=== PATIENT | female | born 1985 | race Caucasian/White ===

== ENCOUNTER 2017-02-22 10:06 | Emergency (ER) | payer OTHER ==
[2017-02-22] MEDS ORDERED: ACETAMINOPHEN 325 MG TABLET PO ONE (10:12)
--- NOTE | 2017-02-22 10:37 | ER Document Report ---
ED GI/ - General Chief Complaint: Nausea/Vomiting Stated Complaint: WEAKNESS/VOMITING Time Seen by Provider: 02/22/17 10:37 Mode of Arrival: Ambulatory Information source: Patient Notes: 31 yo non smoker, no etoh, smoke marijuana to help keep food down past 6 months (2-3 times per wee) female woke up vomiting at 3 am, woke up at 7 am with generalized body aches, Son ran into lapband port with his head this morning causing severe pain. lapband moved to be crooked which is causing inability to keep fuids and food down progressively over 2 years. No nausea. Usually constipated, had small bm this am. No dysuria, no vaginal dishcarge, on menses onset 02-18. Spouse vasectomy. Hx. skin removal, breast implant, appendectomey. melanoma age 22. TRAVEL OUTSIDE OF THE [place] IN LAST 30 DAYS: No - Related Data Allergies/Adverse Reactions: No Known Allergies Allergy (Unverified 02/22/17 10:11) Home Medications: Current Home Medications No Home Medications 02/22/17 [History] Past Medical History - General Information source: Patient - Social History Smoking Status: Never Smoker Chew tobacco use (# tins/day): No Frequency of alcohol use: None Drug Abuse: None Lives with: Spouse/Significant other Family History: Reviewed & Not Pertinent - Medical History Medical History: Negative Renal/ Medical History: Denies: Hx Peritoneal Dialysis Past Surgical History: Reports: Hx Abdominal Surgery Review of Systems - Review of Systems Constitutional: See HPI EENT: No symptoms reported Cardiovascular: No symptoms reported Respiratory: No symptoms reported Gastrointestinal: See HPI Genitourinary: No symptoms reported Female Genitourinary: No symptoms reported Musculoskeletal: No symptoms reported Skin: No symptoms reported Hematologic/Lymphatic: No symptoms reported Neurological/Psychological: No symptoms reported Physical Exam - Vital signs Vitals: Temp Pulse Resp BP Pulse Ox 102.6 F H 101 H 22 H 126/67 H 99 02/22/17 10:10 02/22/17 10:10 02/22/17 10:10 02/22/17 10:10 02/22/17 10:10 Interpretation: Normal - General General appearance: Appears well, Alert - HEENT Head: Normocephalic, Atraumatic Eyes: Normal Conjunctiva: Normal Pupils: PERRL Mucous membranes: Normal Pharynx: No: Erythema Neck: Supple. No: Lymphadenopathy - Respiratory Respiratory status: No respiratory distress Chest status: Nontender Breath sounds: Normal Chest palpation: Normal - Cardiovascular Rhythm: Regular Heart sounds: Normal auscultation Murmur: No - Abdominal Inspection: Normal Distension: No distension Bowel sounds: Normal Tenderness: Tender - suprapubic Organomegaly: No organomegaly - Back Back: Normal, Nontender. No: CVA tenderness - Extremities General upper extremity: Normal inspection, Nontender, Normal color, Normal ROM , Normal temperature General lower extremity: Normal inspection, Nontender, Normal color, Normal ROM , Normal temperature, Normal weight bearing. No: Arsh's sign - Neurological Neuro grossly intact: Yes Cognition: Normal Orientation: AAOx4 [place] Coma Scale Eye Opening: Spontaneous [place] Coma Scale Verbal: Oriented Jose Alfredo Coma Scale Motor: Obeys Commands Jose Alfredo Coma Scale Total: 15 Speech: Normal Motor strength normal: LUE, RUE, LLE, RLE Sensory: Normal - Psychological Associated symptoms: Normal affect, Normal mood - Skin Skin Temperature: Warm Skin Moisture: Dry Skin Color: Normal Skin irregularity: negative: Rash Course - Re-evaluation Re-evalutation: 02/22/17 12:29 labs normal, tender over the "lapband" mass at umbilicus, but always has pain there and above the pubis. so it is not new. pt has had more than [address] scans so will order AAS to start with. 02/22/17 14:31 AAS negative - Vital Signs Vital signs: Temp Pulse Resp BP Pulse Ox 98.1 F 97 18 116/59 L 98 02/22/17 14:32 02/22/17 14:32 02/22/17 14:32 02/22/17 14:32 02/22/17 14:32 - Laboratory Result Diagrams: 02/22/17 10:50 02/22/17 10:50 Laboratory results interpreted by me: 02/22/17 02/22/17 10:50 11:00 Hgb 11.2 L Hct 33.2 L MCV 78 L MCH 26.4 L RDW 15.2 H Seg Neutrophils % 84.0 H Lymphocytes % 8.3 L Urine Blood SMALL H Discharge - Discharge Clinical Impression: chronic vomiting, Chronic abdominal pain Fever Qualifiers: Fever type: unspecified Qualified Code(s): R50.9 - Fever, unspecified Condition: Good Disposition: HOME, SELF-CARE Instructions: Abdominal Pain ([facility]), Acetaminophen, Use of Oowi-Ohn-Chzjruu Ibuprofen ([facility]), Gastroenterology Additional Instructions: tylenol and motrin for fever copy of labs and imaging given to you to er if worse Please complete the patient satisfaction survey if you get one, and return it.. If you do not receive a survey, then you can go to the [facility] website, [email or web address] and place your comments about your very good care. Thank you very much. It was a pleasure being your medical provider today. Forms: Return to Work Referrals: NICHOLE RAWLS MD [ACTIVE STAFF] - Follow up as needed
[2017-02-22] MEDS ORDERED: NORMAL SALINE 1000 ML 1,000 ML IV ONE (10:38)
[2017-02-22 11:01] LABS: ABSOLUTE LYMPHOCYTES (AUTO) 0.7 10^3/uL (0.5-4.7); ABSOLUTE MONOCYTES (AUTO) 0.6 10^3/uL (0.1-1.4); ABSOLUTE NEUT (AUTO) 7.1 10^3/uL (1.7-8.2); BASOPHILS % (AUTO) 0.4 % (0-2); EOSINOPHILS % (AUTO) 0.3 % (0-6); HEMATOCRIT 33.2 % (36.0-47.0); HEMOGLOBIN 11.2 g/dL (12.0-15.5); HGB HCT DIFFERENCE 0.4; LYMPHOCYTES % (AUTO) 8.3 % (13-45); MEAN CORPUSCULAR HEMOGLOBIN 26.4 pg (27.0-33.4); MEAN CORPUSCULAR HGB CONC 33.7 g/dL (32.0-36.0); MEAN CORPUSCULAR VOLUME 78 fl (80-97); RED BLOOD COUNT 4.24 10^6/uL (3.72-5.28); RED CELL DISTRIBUTION WIDTH 15.2 % (11.5-14.0); WHITE BLOOD COUNT 8.4 10^3/uL (4.0-10.5)
[2017-02-22 11:14] LABS: ALANINE AMINOTRANSFERASE 21 U/L (9-52); ALBUMIN 4.4 g/dL (3.5-5.0); ALKALINE PHOSPHATASE 67 U/L (38-126); ANION GAP 11 (5-19); ASPARTATE AMINO TRANSFERASE 18 U/L (14-36); BILIRUBIN,DIRECT 0.2 mg/dL (0.0-0.4); BILIRUBIN,TOTAL 0.6 mg/dL (0.2-1.3); BLOOD UREA NITROGEN 12 mg/dL (7-20); CALCIUM 8.9 mg/dL (8.4-10.2); CARBON DIOXIDE 23 mmol/L (22-30); CHLORIDE 106 mmol/L (98-107); CREATININE RESULT 0.61 mg/dL (0.52-1.25); GLUCOSE 94 mg/dL (75-110); LIPASE 59.8 U/L (23-300); SODIUM 140.3 mmol/L (137-145); TOTAL PROTEIN 7.2 g/dL (6.3-8.2)
[2017-02-22 11:25] LABS: APPEARANCE,URINE CLEAR; BILIRUBIN,URINE NEGATIVE (NEGATIVE); GLUCOSE, URINE NEGATIVE (NEGATIVE); KETONES,URINE NEGATIVE (NEGATIVE); LEUKOCYTE ESTERASE,URINE NEGATIVE (NEGATIVE); NITRITE,URINE NEGATIVE (NEGATIVE); PROTEIN,URINE NEGATIVE (NEGATIVE); URINE SPECIFIC GRAVITY 1.011; UROBILINOGEN,URINE NEGATIVE mg/dL (<2.0)
--- NOTE | 2017-02-22 13:36 | RADIOLOGY REPORT (SQ) ---
EXAM DESCRIPTION: ACUTE ABDOMEN SERIES COMPLETED DATE/TIME: 02/22/2017 1:09 pm REASON FOR STUDY: fever vomiting COMPARISON: None. NUMBER OF VIEWS: Three views. TECHNIQUE: Frontal chest, supine abdomen and upright abdomen radiographic images acquired. LIMITATIONS: None. FINDINGS: CHEST: Lungs clear of infiltrates. FREE AIR: None. No abnormal gas collections. BOWEL GAS PATTERN: Nonobstructive pattern. No dilated loops or air fluid levels. CALCIFICATIONS: No suspicious calcifications. HARDWARE: An inflatable collar is present at the gastroesophageal junction. SOFT TISSUES: No gross mass or suggestion of organomegaly. BONES: No acute fracture. No worrisome bone lesions. OTHER: No other significant finding. IMPRESSION: Nonspecific abdomen. TECHNICAL DOCUMENTATION: JOB ID: [id number] [employer]- All Rights Reserved
[2017-02-22 14:33] VITALS: BP 116/59
== END 2017-02-22 14:41 | disposition home or self-care (01) ==
LOC: ER 10:06
DX: R11.2 Nausea with vomiting, unspecified (principal); R10.33 Periumbilical pain; G89.29 Other chronic pain; R50.9 Fever, unspecified; Z98.84 Bariatric surgery status
CPT/HCPCS: 99284; 96360; 36415; 87086; 83690; 84703; 85025; 80053; 81001; 74022; J7030

== ENCOUNTER → 2017-10-07 | Outpatient (CLI) | payer OTHER ==
--- NOTE | 2017-10-07 13:31 | RADIOLOGY REPORT (SQ) ---
EXAM DESCRIPTION: UGI SERIES COMPLETED DATE/TIME: 10/07/2017 8:31 am REASON FOR STUDY: BARIATRIC SURGERY STATUS (Z98.84), DYSPHAGIA (R13.10), N/V (R11.2) R13.10 DYSPHAG IA, UNSPECIFIED R11.2 NAUSEA WITH VOMITING, UNSPECIFIED Z98.84 BARIATRIC SURGERY STATUS COMPARISON: Abdominal films 02/22/2017 TECHNIQUE: Under fluoroscopic guidance, patient ingested effervescent granules followed by thick and thin barium. Fluoroscopic spot images and routine radiographic images acquired and stored on PACS. 12 MM BARIUM TABLET GIVEN: None LIMITATIONS: None. FLUOROSCOPY TIME: FLUORO TIME: 2.5 minutes 18 digital radiographic images saved to PACS. FINDINGS: NEUROMUSCULAR COORDINATION OF SWALLOW: Normal. No aspiration. ESOPHAGEAL MOTILITY: Normal peristalsis. No esophageal spasm. ESOPHAGEAL MUCOSA: Normal mucosa without masses or ulceration. GASTRO-ESOPHAGEAL JUNCTION: There is a lap band prosthesis at the GE junction in good positioning. T here is moderate narrowing of the distal esophagus at the GE junction, at the level of the lap band p rosthesis. There is slow clearing of barium from the esophagus through the GE junction into the stom ach. Delayed images were obtained, on 10 minutes delayed KUB images there is still barium in the dis rocael esophagus. No gastroesophageal reflux. STOMACH: Images of the stomach are unremarkable. No mucosal irregularity. No ulcer. GASTRIC OUTLET: No delay in emptying. Normal pylorus. DUODENAL BULB: Normal distention. No spasm or ulceration. DUODENUM: Mucosa normal. No extrinsic masses or malrotation. PROXIMAL SMALL BOWEL: Mucosa normal. No extrinsic masses or malrotation. NON-GI TRACT STRUCTURES: No significant finding. OTHER: No other significant finding. IMPRESSION: Narrowing of the distal esophagus at the GE junction at the level of the lap band. Ther e is slow clearing of barium from the esophagus. Stomach, duodenum, proximal small bowel unremarkable COMMENT: Quality ID [id number]: Final reports for procedures using fluoroscopy that document radiation exp osure indices, or exposure time and number of fluorographic images (if radiation exposure indices are not available) TECHNICAL DOCUMENTATION: JOB ID: [id number] [employer]- All Rights Reserved Reading location - IP/workstation name: [facility]
== END ==
LOC: RAD 07:20
PROVIDERS: ATTEND Surgery
DX: R13.10 Dysphagia, unspecified (principal); R11.2 Nausea with vomiting, unspecified; Z98.84 Bariatric surgery status
CPT/HCPCS: 74247